=== PATIENT | female | born 1940 | race Caucasian/White ===

== ENCOUNTER → 2016-11-10 | Outpatient (CLI) | payer MEDICARE, OTHER ==
[~2016-11-10] MED LIST: ALBUTEROL20 ml INH; ASPIRIN81 M2 PO; ATORVASTATIN CA80 MG PO; BRILINTA90 MG PO; CARVEDILOL12.5 MG PO; COREG3.125 MG PO; COREG6.25 MG PO; FAMOTIDINE20 M1 PO; GLIPIZIDE10 MG/BOTT PO; LASIX20 MG PO; LEVEMIR100 UNITS/ SUBQ; LISINOPRIL20 MG PO; NEXIUM PO; NITROGLYCERIN0.4 MG SL; PEPCID40 MG PO; SIMVASTATIN40 MG PO; SYMBICORT80 INH; ZESTRIL2.5 M1 PO
--- NOTE | ~2016-11-10 | US77 ---
[facility] RADIOLOGY TEXT RESULTS PATIENT: KATINA RAMIREZ LOCATION: [facility] : 42 UNIT #: [id number] AGE: [address]: Terry Ford MD SEX: F ORDER DR: [id number] [place] [id number] O MR#: [id number] Acc #: [id number] NAME: KATINA RAMIREZ : 1940 SEX: F STUDY DATE/TIME: 11/10/2016 12:53 UNIT: [facility] ROOM: STUDY DESCRIPTION: US Kidney Bilateral Complete Attending Physician: Terry Ford M.D. Referring Physician: Terry Ford M.D. Ordering Physician: Terry Ford M.D. Primary Care Physician: Kelli Rosales M.D. MEDICAL IMAGING REPORT This report is preliminary unless electronic signature is present. EXAM Renal ultrasound INDICATIONS Chronic kidney disease, stage III. PROCEDURE Foley-scale and Doppler imaging of the kidneys and bladder. COMPARISON None FINDINGS Right kidney measures approximately 7.9 cm in length. Cortical thickness 10 mm. Left kidney measures 9.6 cm in length. Cortical thickness approximately 10 mm. No hydronephrosis. Unremarkable bladder. IMPRESSION Negative renal ultrasound. Cortical thickness is within normal limits. There is no hydronephrosis or focal lesion. Dictated by... Tony Robbins M.D. THIS IS AN ELECTRONICALLY VERIFIED REPORT Tony Robbins M.D. at 11/13/2016 7:05 AM EED/psc TD: 11/10/2016 15:27 JOB #: [id number] [facility] A [facility] RADIOLOGY TEXT RESULTS PATIENT: KATINA RAMIREZ LOCATION: [facility] : 42 UNIT #: [id number] AGE: [address]: Terry Ford MD SEX: F ORDER DR: MEDICAL IMAGING REPORT Page 1 of 1
[2016-11-10 12:45] LABS: BASOPHIL# 0.1 X10e3 (0-0.3); HEMATOCRIT 21.9 % (35.0-45.0); LYMPHOCYTE# 1.4 X10e3 (1.0-3.5); MEAN CELL VOLUME 68.7 FL (83-96); MEAN CORPUSCULAR HEMOGLOBIN 21.4 PG (28-34); MONOCYTE# 0.7 X10e3 (0-1.0); NEUTROPHIL# 5.4 X10e3 (1.5-7.1); RED BLOOD COUNT 3.19 X10e (3.90-5.30)
[2016-11-10 12:47] LABS: BASOPHIL% 0.9 % (0-2.5); EOSINOPHIL# 0.2 X10e3 (0-0.7); EOSINOPHIL% 2.6 % (0.0-7.0); LYMPHOCYTE% 18.5 % (17.0-45.0); MEAN CORPUSCULAR HGB CONC 31.1 g/dL (30-36); MEAN PLATELET VOLUME 7.6 FL (6.5-11.5); MONOCYTE% 8.9 % (3.0-12.0); NEUTROPHIL% 69.1 % (40-75); PLATELET COUNT 379 X10e3 (140-420); RED CELL DISTRIBUTION WIDTH 18.5 % (11.0-15.5); WHITE BLOOD COUNT 7.8 X10e3 (4.0-10.5)
[2016-11-10 13:06] LABS: BUN/CREATININE RATIO 22.3; CALCIUM SERUM 9.5 mg/dL (8.4-10.2); CREATININE SERUM 1.3 mg/dL (0.6-1.4); GLOM FILT RATE Estimated 40.4 mL/min (>60); POTASSIUM 4.2 mmol/L (3.5-5.1)
[2016-11-10 13:27] LABS: MICRO INDICATED? NO; URINE APPEARANCE CLEAR; URINE BILIRUBIN NEG (NEG); URINE BLOOD NEG (NEG); URINE COLOR YELLOW; URINE GLUCOSE NEG (NORM); URINE KETONE NEG (NEG); URINE LEUKOCYTE ESTERASE NEG (NEG); URINE NITRATE NEG (NEG); URINE PROTEIN NEG (NEG); URINE UROBILINOGEN 0.2 MG/DL (NORM)
[2016-11-10 13:30] LABS: HEMOGLOBIN 6.8 gm/dL (12.0-16.0)
[2016-11-10 13:35] LABS: DIFF IND NO
[2016-11-10 15:16] LABS: CREATININE,RANDOM URINE 18 mg/dL; TOTAL PROTEIN,RANDOM URINE <10 mg/dl (<10)
== END | disposition home or self-care (01) ==
LOC: SGUS 12:28
PROVIDERS: Internal Medicine Nephrology
DX: N18.3 Chronic kidney disease, stage 3 (moderate) (principal)
CPT/HCPCS: 36415; 76775; 80048; 81003; 82570; 84156; 85025